=== PATIENT | female | born 1960 | race Caucasian/White ===

== ENCOUNTER 2017-09-03 23:36 | Emergency (ER) | payer MEDICAID ==
[2017-09-04] MEDS ORDERED: Pantoprazole 40 mg EC Tab PO STA (01:34)
[2017-09-04] MEDS ORDERED: Pantoprazole 40 mg EC Tab PO ONE (01:35)
[2017-09-04 01:49] LABS: BASOPHILE ABSOLUTE 0.1 Th/cumm (0-0.2); EOSINOPHILE ABSOLUTE 0.1 Th/cmm (0.1-0.4); HEMATOCRIT 37.6 % (41.0-60); HEMOGLOBIN 12.6 gm/dL (12-16); LYMPHOCYTE ABSOLUTE 0.6 Th/cmm (1.5-3.0); MANUAL DIFF REQUIRED? YES; MEAN CORPUSCULAR HEMOGLOBIN 27.9 pg (27.0-31.0); MEAN CORPUSCULAR HGB CONC 33.6 pg (28.0-36.0); MEAN PLATELET VOLUME 8.8 fl; MONOCYTE ABSOLUTE 0.4 Th/cmm (0.3-1.0); NEUTROPHILE ABSOLUTE 11.3 Th/cmm (1.8-8.0); PLATELET COUNT 306 Th/cmm (150-400); RED BLOOD COUNT 4.53 Mil/cmm (3.80-5.10); RED CELL DISTRIBUTION WIDTH 12.2 % (11.5-20.0)
[2017-09-04 02:04] LABS: WHITE BLOOD COUNT 12.5 Th/cmm (4.8-10.8)
[2017-09-04 02:26] LABS: ALB/GLOB RATIO 1.5 (1.0-1.8); ALBUMIN 4.3 gm/dL (3.7-5.3); BILIRUBIN,TOTAL 0.5 mg/dL (0.3-1.0); TOTAL PROTEIN,SERUM 7.1 gm/dL (6.0-8.3)
[2017-09-04 02:28] LABS: BILIRUBIN,DIRECT 0.09 mg/dL (0.0-0.2)
[2017-09-04 03:25] LABS: BAND NEUTROPHILE 3 % (0-10); LYMPHOCYTE 3 % (20-50); MONOCYTE 1 % (2-10); NEUTROPHILS 93 % (40-80); TOTAL CELLS COUNTED 100
[2017-09-04 03:28] LABS: PLATELET ESTIMATE ADEQUATE (NORMAL)
[2017-09-04 03:29] LABS: HYPOCHROMIA 1+
--- NOTE | 2017-09-04 06:31 | ED Physician Chart ---
ED Chief Complaint/HPI - Patient Information Date Seen:: 09/04/16 Time Seen:: 01:00 Chief Complaint:: ABDOMINAL PAIN History of Present Illness:: PATIENT REPORTS ABDOMINAL PAIN 1 MONTH DURATION, NO NAUSEA OR DIARRHEA. Allergies:: Allergies Allergy/AdvReac Type Severity Reaction Status Date / Time No Known Allergies Allergy Verified 09/04/17 01:06 Vitals:: Vital Signs - 8 hr 09/04/17 09/04/17 01:00 04:55 Temp 98.4 F 98.6 F HR 103 89 RR 20 19 BP 154/79 136/70 O2 Sat % 98 98 Historian:: Patient Review:: Nurse's Note Reviewed ED Review of Systems - Review of Systems General/Constitutional: No fever Skin: No skin lesions Head: No headache Eyes: No loss of vision ENT: No earache Neck: No neck pain Cardio Vascular: No chest pain Pulmonary: No SOB GI: No nausea, No vomiting, No diarrhea, Pain (ABDOMINAL PAIN 1 MONTH DURATION) G/U: No dysuria Musculoskeletal: No bone or joint pain Endocrine: No polyuria Psychiatric: No prior psych history Hematopoietic: No bruising Allergic/Immuno: No urticaria Neurological: No syncope ED Past Medical History - Past Medical History Obtainable: Yes Past Medical History: HTN, DM Family History: None Surgical History: Family Medical History - Family Member Mother History Unknown: Yes ED Physical Exam - Physical Examination General/Constitutional: Awake Head: Atraumatic Eyes: Lids, conjuctiva normal Skin: Nl inspection ENMT: External ears, nose nl Neck: Nontender Respiratory: Nl effort/Exclusion Cardio Vascular: RRR GI: Normal BS's Other GI comments:: EPIGASTRIC TENDERNESS Extremities: No tenderness or effusion Neuro/Psych: Alert/oriented ED Labs/Radiology/EKG Results - Lab Results Results: Laboratory Tests 09/04/17 09/04/17 09/04/17 01:42 01:42 01:42 WBC 12.5 H RBC 4.53 Hgb 12.6 Hct 37.6 L MCV 83.0 MCH 27.9 MCHC Differential 33.6 RDW 12.2 Plt Count 306 MPV 8.8 Band Neutrophils % 3 Neutrophils (Manual) 93 H Lymphocytes 3 L Monocytes 1 L Hypochromia 1+ Platelet Estimate ADEQUATE Microcytosis 1+ POC Glucose Whole Bld Lactic Acid 2.68 H* Total Bilirubin 0.5 Direct Bilirubin 0.09 AST 14 ALT 19 Alkaline Phosphatase 85 Total Protein 7.1 Albumin 4.3 Globulin 2.8 Albumin/Globulin Ratio 1.5 Lipase 39 09/04/17 09/04/17 03:45 04:50 WBC RBC Hgb Hct MCV MCH MCHC Differential RDW Plt Count MPV Band Neutrophils % Neutrophils (Manual) Lymphocytes Monocytes Hypochromia Platelet Estimate Microcytosis POC Glucose 139 H Whole Bld Lactic Acid 2.34 H* Total Bilirubin Direct Bilirubin AST ALT Alkaline Phosphatase Total Protein Albumin Globulin Albumin/Globulin Ratio Lipase ED Assessment - Assessment General Assessment: WBC SLIGHTLY ELEVATED. CT ORDERED, RESULTS INDICATE GALLSTONE WITH POSSIBLE BILIARY COLIC. FATTY LIVER INFILTRATION, RESPONSIVE TO H2 JENIFER. ED Septic Shock - . Is Septic Shock (SBP<90, OR Lactate>4 mmol\L) present?: No - <6hrs of presentation: Vital Signs: Vital Signs - 8 hr 09/04/17 09/04/17 01:00 04:55 Temp 98.4 F 98.6 F HR 103 89 RR 20 19 BP 154/79 136/70 O2 Sat % 98 98 ED Reassessment (Disposition) - Reassessment Reassessment:: RECOMMEND DISCUSSION ABOUT SURGICAL REMOVAL OF GALLBLADDER WITH GI DOCTOR. PATIENT HAS HISTORY OF DIABETES. Reassessment Condition:: Improved - Diagnosis Diagnosis:: GALLSTONES WITH BILIARY COLIC - Aftercare/Follow up Instructions Aftercare/Follow-Up Instructions:: Counseled pt regarding lab results/diagnosis & need follow up, Refer to Discharge Instructions Notes:: FOLLOW UP WITH PMD IN THE MORNING. Medication Prescribed:: PRESCRIBED PROTONIX, IF UNABLE TO OBTAIN USE ZANTAC, NPO, 1/2 METFORMIN - Patient Disposition Discharge/Transfer:: Home Transport Method:: Private ED Discharge Plan - Patient Disposition Admit/Discharge/Transfer: PT DISCHARGED HOME Condition at Disposition: Improved Instructions: Cholelithiasis, [id number]
--- NOTE | 2017-09-04 09:42 | Diagnostic Imaging Report ---
Abdominal series 2 views Indication: pain Comparison: none Findings: The bowel gas pattern is nonspecific. Increased hazy density seen throughout the abdomen. Overlying clinically material is noted. Degenerative changes of the spine are noted. Impression: Nonspecific bowel gas pattern. Increased hazy density throughout the abdomen which may be due to ascites or increased-abdominal body fat. Please refer to follow-up CT for further details.
--- NOTE | 2017-09-04 10:40 | Diagnostic Imaging Report ---
CT abdomen and pelvis without intravenous contrast Indication: Abdominal pain Comparison: None, Technique: Axial images were obtained from the lung bases to the bilateral proximal femurs without IV contrast. Coronal reconstructions were made. total DLP: 590, CTDI11.1 FINDINGS: Hypoventilatory and atelectatic changes of the lung bases are noted. Assessment of the solid organs is limited due to lack of IV contrast. There is fatty infiltration of the liver. No evidence of focal lesions. Gallstones are noted. No focal splenic, pancreatic, or adrenal lesions. No evidence of hydronephrosis or nephrolithiasis. Diverticulosis is noted without evidence of diverticulitis. No evidence of appendicitis. Mild subcutaneous edema of the anterior abdominal wall is noted. No evidence of free fluid or free air. Mild atherosclerosis is noted. Degenerative changes of the spine are noted. There is a 3 mm anterolisthesis of L4 on L5 likely due to facet arthropathy. IMPRESSION: No evidence of bowel obstruction patent cholelithiasis. Consider further assessment with ultrasound examination. Diverticulosis without evidence of diverticulitis. Hepatic steatosis Grade 1 anterolisthesis of L4 on L5 likely due to facet arthropathy.
== END 2017-09-04 05:05 | disposition home or self-care (01) ==
LOC: ER 23:36
DX: K80.70 Calculus of gallbladder and bile duct without cholecystitis without obstruction (principal); I10 Essential (primary) hypertension; E11.9 Type 2 diabetes mellitus without complications
CPT/HCPCS: 36415-UA; 74020-TC; 80076-TC; 82948-90; 83605; 83690-TC; 85007-TC; 85027-TC; Z7610

== ENCOUNTER 2017-10-17 13:35 | Emergency (ER) | payer MEDICAID ==
[2017-10-17] MEDS ORDERED: Triple Antibiotic 0.94 gm Pkt TP STA (14:26)
[2017-10-17] MEDS ORDERED: Acetaminophen 500 MG TAB PO ONE (14:26)
[2017-10-17] MEDS ORDERED: Acetaminophen 500 MG TAB ONE (14:29)
[2017-10-17 14:37] LABS: % BASOPHILS 1.1 % (0.0-2.0); % EOSINOPHILS 0.8 % (0.0-5.0); % LYMPHOCYTES 12.4 % (20.0-50.0); % MONOCYTES 6.3 % (2.0-10.0); % NEUTROPHILS 79.4 % (40.0-80.0); BASOPHILE ABSOLUTE 0.1 Th/cumm (0-0.2); EOSINOPHILE ABSOLUTE 0.1 Th/cmm (0.1-0.4); HEMATOCRIT 34.7 % (41.0-60); HEMOGLOBIN 11.6 gm/dL (12-16); MEAN CELL VOLUME 81.9 fl (81-100); MEAN CORPUSCULAR HEMOGLOBIN 27.2 pg (27.0-31.0); MEAN CORPUSCULAR HGB CONC 33.3 pg (28.0-36.0); MEAN PLATELET VOLUME 9.2 fl; MONOCYTE ABSOLUTE 0.5 Th/cmm (0.3-1.0); NEUTROPHILE ABSOLUTE 6.6 Th/cmm (1.8-8.0); PLATELET COUNT 295 Th/cmm (150-400); RED BLOOD COUNT 4.24 Mil/cmm (3.80-5.10)
[2017-10-17 14:38] LABS: WHITE BLOOD COUNT 8.3 Th/cmm (4.8-10.8)
[2017-10-17] MEDS ORDERED: Pantoprazole 40 mg EC Tab PO STA (14:49)
[2017-10-17 14:52] LABS: ALB/GLOB RATIO 1.1 (1.0-1.8); ALKALINE PHOSPHATASE 92 U/L (34-104); ANION GAP 12.5 (7.0-16.0); BILIRUBIN,TOTAL 0.4 mg/dL (0.3-1.0); BUN - UREA NITROGEN 12 mg/dL (7-25); CALCIUM SERUM 9.6 mg/dL (8.6-10.3); CARBON DIOXIDE 26.5 mEq/L (21.0-31.0); CHLORIDE 98 mEq/L (98-107); CREATININE - SERUM 1.1 mg/dL (0.6-1.2); GFR AFRICAN-AMERICAN > 60.0 ml/min (>90); GLUCOSE 248 mg/dL (70-105); SGOT 15 U/L (13-39); SGPT/ALT 17 U/L (7-52); SODIUM SERUM 134 mEq/L (136-145); TOTAL PROTEIN,SERUM 7.7 gm/dL (6.0-8.3)
[2017-10-17] MEDS ORDERED: Potassium Chloride 20 mEq ER Tab PO ONE ×3 (14:59→15:06)
[2017-10-17 15:00] VITALS: BP 161/68
[2017-10-17] MEDS ORDERED: Sodium Chloride 0.9% 1,000 ML IV ONE (15:04)
[2017-10-17] MEDS ORDERED: Bacitracin pkt 1 gm Pkt TP ONE (15:16)
[2017-10-17] MEDS ORDERED: Pantoprazole 40 mg EC Tab PO ONE (15:41)
--- NOTE | 2017-10-17 16:31 | Transfer Summary ---
DATE OF TRANSFER: ADDENDUM LABORATORY DATA AND X-RAY REPORTS: White count is 8.3, hemoglobin is 11.6, hematocrit is 34.7, and platelet count is 295,000. Neutrophils are 79.4. Chemistry shows sodium 134, potassium of 3, chloride 98, CO2 26.5, BUN is 12, creatinine is 1.1, BUN and creatinine ratio is 10.9, calcium is 9.6, magnesium is 2, total bilirubin 0.4, AST is 15, ALT is 17, alkaline phosphatase is 92, total protein is 7.7, albumin is 4, globulin is 3.1, albumin globulin ratio is 1.1. The patient had x-rays of the knees done and x-ray knee shows some mild swelling. Otherwise, there are no broken bones seen. X-rays of the nose was done, which was found to be within normal limits. The patient was given potassium 40 mEq by mouth and the patient will get some pain killer medications to go home and knee brace where there is ecchymosis and a little ecchymotic area and scratches on the knees and medial part of the upper arm will be applied there. The patient will have a dressing and a knee brace over there and dressing on the right upper arm, in between the elbow and knee. Curly dressing will be applied over there, then the patient will be discharged to home. Ice pack to be applied over the nose. The patient will get the knee brace. The patient was given IV fluids. The patient was given 1 gram of metformin. The patient was given 40 mEq of potassium chloride, two Tylenol tablets. We will tell them to take some Aleve or best thing will be Motrin, which is less toxic to the GI and less toxic to the kidneys and then, the patient to see her own physician. Continue the pain medication, preferably Tylenol, if needed Tylenol with combination with Motrin. FINAL DIAGNOSES: 1. Trip and fall in front of [employer]. 2. Diabetes mellitus history of. 3. Hypertension. 4. Hyperkalemia. 4. Injury to the right knee with swelling and the patient has no history of any fracture. The patient has injury to the nose with nosebleed, epistaxis, but no history of any fracture. There is ecchymosis in between the right shoulder and the right elbow. The patient should continue this medication. The patient's blood sugar was 248, was given 500 mg of metformin. Magnesium etc. is within normal limits. A 1000 mL of normal saline has been given to the patient because when she came, for a long time she did not eat or drink. The patient will be going home. Dr. Mcconnell is going to take care of the patient and he has done a good job in taking care of the patient. FINAL DIAGNOSES: Trip and fall, diabetes, hypertension, injury to the right knee, injury in between the right shoulder and the right elbow medial part ecchymotic area, injury to the right nose with epistaxis, the patient has mild obesity, history of 2 section done in the past. Thanks Dr. Mcconnell for helping me. JOB# [id number]
--- NOTE | 2017-10-17 16:45 | History & Physical ---
ADMIT DATE: HISTORY OF PRESENT ILLNESS: An EKG was done at that point in time to let me saw that the dictation of that EKG. EKG looks to be within normal limits with very very minor nonspecific intraventricular conduction delay and not much of any clinical significance. The history was taken by talking to the patient's son and the patient herself, the patient does not speak [place]. The son helped to translate the history. The history is that the patient had tripped and fall on the sidewalk in front of [employer] half an hour ago prior to her coming over here and that she came here at 1355, so this might have happened at 1325. At that time, she injured her right brachial bone area and there is some scratch derrick and little more thick area is seen and she injured her right knee, which is somewhat swollen, but moves it. So, doubt there is any fracture. There seems to be slight swelling in the knee joint. The patient had some injury into the nose and she was bleeding from the nose. Ice was applied and it stopped. The patient did not lose any consciousness. The patient was brought here, I believe by the financial service representative ambulance. The patient did not lose any consciousness. The patient does not have any chest pain, myocardial infarction, rheumatic fever or any other medical problem that would give her this problem. Her blood sugars were done over here. I believe they were found to be within normal limits. The patient's history of present illness beside this complaint, the patient has no other complaint. PAST MEDICAL HISTORY: Includes that she has a history of two C-sections, one horizontal and one vertical, both boys were delivered. FAMILY HISTORY: The patient's family history includes hypertension and diabetes. So, the patient has hypertension and diabetes mellitus. CURRENT MEDICATIONS: Include metformin hydrochloride 1000 mg, I believe she takes 2 tablets of either and both at the same time of 500 mg b.i.d.; pravastatin 40 mg p.o. daily that is a statin tablet for hypercholesterolemia; and she takes hydrochlorothiazide 25 mg a day. She takes amlodipine 10 mg a day and she takes glipizide 5 mg p.o. once a day. Her mother is of hypertension and diabetes mellitus. The patient's triage nurse took the vital signs showing that temperature is 97.8, pulse is 83, respirations 20, blood pressure 161/68, saturation is 98%. Height is 5 feet 2 inches, weighing 172 pounds. She took the flu vaccine in 2017. No tetanus, no drinking, no smoking, no drug. She does not work. FAMILY HISTORY: She is . She has 2 sons. works in the factory. REVIEW OF SYSTEMS: EYES: No history of double vision, blurring blindness. NEURO: No history of TIA, stroke, encephalitis, meningitis. BONES AND JOINTS: No apparent complaints except for the new injury, by which there might be a possibility of fracture of the nasal bones, knee joint fracture is less likely, but swelling, edema is possibility whether there is any in future by MRI if there is any meniscus tear, etc., that might be needing to be worked up depending on her own physician's judgment and current report. CARDIAC: No history of chest pain, no myocardial infarction, rheumatic fever, valvular heart disease, pericardial disease, or cardiomyopathy. No palpitations, no sick sinus syndrome. No cardiac surgical procedures done. ABDOMEN: No history of liver enlargement or spleen enlargement. No ascites. No peritonitis. Surgical scar vertical and horizontal in the lower abdomen of point. Bowel sounds are normal. GENITOURINARY: No burning, no frequency, no dysuria. CANCER: The patient has no history of any cancer. MEDICAL: The patient has diabetes and hypertension history. DRUG ABUSE: None known. PHYSICAL EXAMINATION: GENERAL: The patient appears to be awake, alert, oriented, not in any acute cardiorespiratory distress. VITAL SIGNS: Vital signs were already given to you. Initial lab results were also given to you. We repeated the blood pressure again because the initial systolic pressure is 161/68 may be because of pain. EXTREMITIES: No edema, no cyanosis, no petechia. No ecchymosis. The right knee has swelling, pain, ecchymosis and some minor abrasion is noted. Right mid arm on the medial aspect has somewhere around the brachial bone area in the mid area below the right shoulder. There is an ecchymotic area is seen. The patient does not have any history of ____ system. The patient moves all the extremities. No history of any fractures. No history of any strokes, etc. seen. GASTROINTESTINAL: No history of any diarrhea, nausea, or vomiting, GERD, Crohn's disease, any history of diverticulitis, or GI bleeding, etc. CARDIAC: No history of any chest pain, cardiac arrhythmias, sick sinus syndrome. No history of any pacemakers. CANCER: There is no history of any cancer seen or heard. ENDOCRINE: She has diabetes and also hypercholesterolemia. Never had history of hypoglycemia in the past. GENITOURINARY: Benign and negative. Costovertebral angles appears to be normal. BLEEDING: The patient never had any upper or lower GI bleeding point. The patient has no other bone, gallbladder, etc. surgery done in the past. HEENT: On physical exam, the patient appears otherwise to be essentially normal, not in any acute cardiorespiratory distress. The nose is swollen, tender, painful with bleeding from the nose that showed to me by the son on the towel and the patient does not have any history of any acute bleeding at the present moment, the patient can walk. The patient can talk. The patient has no edema, no cyanosis. No petechia or ecchymosis. CHEST: Clear. Trachea is in central, fairly good air entry in both lungs without any rales, rhonchi, or bronchial breathing. ABDOMEN: Soft, benign, and negatives and the patient has a liver and spleen not enlarged. No free fluid in the abdominal cavity. CENTRAL NERVOUS SYSTEM: Normal. The right knee is swollen, painful ecchymotic area is seen. HEART: PMI is not seen or felt. S1, S2 well heard. Fourth heart sound is audible. Third heart sound is absent. Second heart sound is physiologically split. CLINICAL IMPRESSION: 1. The patient tripped and fall with injury to the right nose, injury to the right medial part of area in between the shoulder and the right elbow medial part with scratches. 2. Injury to the right fracture with swelling, pain, tenderness with some ecchymotic area and some scratches. 3. Other diagnosis that she carries includes diabetes mellitus type 2. 4. Hypercholesterolemia. 5. Hypertension. 6. History of two surgeries done in the past. 7. Family history of diabetes mellitus and mother of diabetes mellitus. The patient has 2 sons, one who works in the factory. JOB# [id number]
--- NOTE | 2017-10-18 07:44 | Diagnostic Imaging Report ---
Portable chest x-ray HISTORY: Pain Allowing for portable technique in a poor inspiration, the heart size is normal. No focal pulmonary processes. No hilar or mediastinal abnormalities. IMPRESSION: No acute pulmonary processes
--- NOTE | 2017-10-18 07:47 | Diagnostic Imaging Report ---
Right knee (3 views) HISTORY: Pain, trauma No acute bony abnormality is. No fractures. Degenerative changes with hypertrophic spur formation noted about the medial lateral tibial plateau regions. Spur formation seen about the tibial plateaus. Spur formation noted about the medial femoral condyle. Calcification noted adjacent to the medial joint compartment probably on a dystrophic basis. IMPRESSION: 1. No acute abnormalities 2. Degenerative and chronic changes
--- NOTE | 2017-10-18 07:48 | Diagnostic Imaging Report ---
Nasal bones (2 views) HISTORY: Pain, trauma No acute bony abnormalities. No fractures. Normal aeration of the paranasal sinuses. IMPRESSION: No acute abnormalities
== END 2017-10-17 17:20 | disposition home or self-care (01) ==
LOC: ER 13:35
DX: S89.91XA Unspecified injury of right lower leg, initial encounter (principal); I10 Essential (primary) hypertension; E11.9 Type 2 diabetes mellitus without complications; E87.5 Hyperkalemia; Y93.89 Activity, other specified; W01.0XXA Fall on same level from slipping, tripping and stumbling without subsequent striking against object, initial encounter; Y92.89 Other specified places as the place of occurrence of the external cause; Y99.8 Other external cause status
CPT/HCPCS: 99285; 96365; 29505; 93005; 70160; 71045; 73564; 36415; 85025; 83036; 83735; 80053; 90715; J0696 ×2; 73562-TC-RT; 87086-90; J7030; Z7610